=== PATIENT | female | born 1945 | race Caucasian/White ===

== ENCOUNTER → 2017-08-12 | Outpatient (CLI) | payer MEDICARE ==
[~2017-08-12] MED LIST: ALPR-445 PO; AMI10 PO; AMI25 PO; AMIT-106 PO; ASPI81TA94 PO; BIMOD OP; BLOO1STR16 MC; CYC10 PO; DULO30CA35 PO; DULO60CA56 PO; ERGO500037 PO; FLU45SYR17 IM; FLU45SYR25 IM ONLY; FLU60SYR30 IM ONLY; GABA-547 PO; GABA-549 PO; IBUP-1618 PO; LANC-1295 MC; LATA2.5D5; LEVO50TA86 PO; METF-410 PO; METF-420 PO; METO-1 PO; METO-253 PO; OMEP-218 PO; PNEU0.5D3 IM; POTA8TAB41 PO; PREG50CA48 PO; VALS160T2 PO; VALS160T20 PO; VALS1TAB72 PO; [UNRECOGNIZED DRUG - CODE] ASDIRECTED
[2017-08-12 09:32] LABS: LDL CHOLESTEROL 72 mg/dl
== END ==
LOC: LAB 08:36
PROVIDERS: ATTEND Internal Medicine
DX: E55.9 Vitamin D deficiency, unspecified (principal); E11.40 Type 2 diabetes mellitus with diabetic neuropathy, unspecified; I10 Essential (primary) hypertension; E03.9 Hypothyroidism, unspecified
CPT/HCPCS: 36415; 82040; 82247; 82306; 82310; 82374; 82435; 82465; 82565; 82947; 83036; 83718; 84075; 84132; 84155; 84295; 84443; 84450; 84460; 84478; 84520

== ENCOUNTER → 2017-12-23 | Outpatient (CLI) | payer MEDICARE ==
[~2017-12-23] MED LIST changes: +HYDR12.561 PO; -METF-410 PO; +METF-411 PO; -METF-420 PO; +METF-421 PO; -VALS160T2 PO; +VALS160T7 PO
[2017-12-23 08:53] LABS: LDL CHOLESTEROL 78 mg/dl
== END ==
LOC: LAB 08:14
PROVIDERS: ATTEND Internal Medicine
DX: E11.49 Type 2 diabetes mellitus with other diabetic neurological complication (principal); I10 Essential (primary) hypertension; E78.1 Pure hyperglyceridemia; E03.9 Hypothyroidism, unspecified; E55.9 Vitamin D deficiency, unspecified
CPT/HCPCS: 36415; 82040; 82247; 82306; 82310; 82374; 82435; 82465; 82565; 82947; 83036; 83718; 84075; 84132; 84155; 84295; 84443; 84450; 84460; 84478; 84520

== ENCOUNTER → 2018-07-20 | Outpatient (CLI) | payer MEDICARE ==
[~2018-07-20] MED LIST changes: +FLU180SY11 IM; +LANC-1149 MC; +LOSA100T75 PO; +LOSA50TA80 PO; -METF-411 PO; -METF-421 PO; +METF-450 PO; +METF-452 PO; -VALS160T7 PO; +VALS160T8 PO
[2018-07-20 11:11] LABS: LDL CHOLESTEROL 76 mg/dl
== END ==
LOC: LAB 10:23
PROVIDERS: ATTEND Internal Medicine
DX: E11.49 Type 2 diabetes mellitus with other diabetic neurological complication (principal); E55.9 Vitamin D deficiency, unspecified; E03.9 Hypothyroidism, unspecified; I10 Essential (primary) hypertension
CPT/HCPCS: 36415; 82040; 82247; 82306; 82310; 82374; 82435; 82465; 82565; 82947; 83036; 83718; 84075; 84132; 84155; 84295; 84443; 84450; 84460; 84478; 84520

== ENCOUNTER → 2019-01-09 | Outpatient (CLI) | payer MEDICARE ==
[~2019-01-09] MED LIST changes: +DULA1.5P SQ
--- NOTE | 2019-01-09 11:25 | RADIOLOGY IMAGING REPORT ---
[place] [facility] [place] NAME: Francine Monk : 1945 MR: [id number] V: [id number] EXAM DATE: ORDERING PHYSICIAN: ALICE URIOSTEGUI TECHNOLOGIST: Location: [facility] - [place] Patient: Francine Monk : 1945 Visit/Account:[id number] Date of Sevice: 01/09/2019 DEXA Scan Clinical history: Postmenopausal. Comparison: DEXA scan from 03/09/2017. LUMBAR SPINE: The bone mineral density (BMD) measured from L1-L4 correlates with a Z-score 0.7 and a T-score of -0. 7 which is Normal as defined by the World Health Organization. The corresponding risk of fracture in the lumbar spine is 1-2 times increased compared with a young adult reference population. This valu e has increased by 1.7 % since the prior study. More than 5% change is considered significant. FOREARM: The bone mineral density (BMD) measured in the ULTRADISTAL Left forearm, where trabecular bone predom inates, correlates with a Z-score of 1.1 and a T-score of -0.9 which is normal as defined by the Worl Health Organization. The corresponding risk of fracture in the distal forearm is 1-2 times increas ed compared with a young adult reference population. This value has increase by 7.3 % since the prio r study. More than 5% change is considered significant. The bone mineral density (BMD) in the MIDSHAFT of the forearm, where cortical bone predominates, jared elates with a Z-score of 0.4 and a T-score of -1.5 which is osteopenia as defined by the World Health Organization. The corresponding risk of fracture in the midshaft of the forearm is 3 times increased compared with a young adult reference population. This value has increased by 7.3 % since the prior study. More than 5% change is considered significant. IMPRESSION: 1. Lumbar spine: Normal. There has been 1.7% increase in the bone mineral density since the previou s exam. 2. Left Forearm: Osteopenia. There has been 7.3% increase in the bone mineral density since the pr evious exam The next DEXA scan of this patient should include the following sites: L1-L4 and the left forearm. FRAX? WHO Fracture Risk Assessment Tool link: <http://www.shef.ac.uk/FRAX/tool.jsp?locationValue=9> PLEASE NOTE: 1) The World Health Organization defines low BMD as follows: T-score Normal > -1 Osteopenia < -1 and > -2.5 Osteoporosis < -2.5 without fractures Established osteoporosis < -2.5 with fractures 2) In general, you may wish to consider: Diagnosis Treatment Follow-up DEXA Normal BMD Prevention 2-3 years Osteopenia Prevention/therapy 1-2 years Osteoporosis Therapy Yearly 3) Fracture risk estimated from the T-score is more accurate for vertebral fractures (often spontane ous) than for hip fractures. Report Dictated By: Jaclyn Beltre MD at 01/09/2019 10:48 AM Report E-Signed By: Jaclyn Beltre MD at 01/09/2019 11:18 AM RAFAELN:AMICIVHerbert
== END ==
LOC: RAD 01:08
PROVIDERS: ATTEND Family Medicine
DX: M85.832 Other specified disorders of bone density and structure, left forearm (principal)
CPT/HCPCS: 77080

== ENCOUNTER → 2019-01-11 | Outpatient (CLI) | payer MEDICARE | LOC: LAB 14:29 | PROVIDERS: ATTEND Surgery | DX: Z01.818 Encounter for other preprocedural examination (principal) | CPT/HCPCS: 36415; 82310; 82374; 82435; 82565; 82947; 83036; 84132; 84295; 84520 ==

== ENCOUNTER → 2019-02-13 | Outpatient (CLI) | payer MEDICARE ==
--- NOTE | 2019-02-13 15:32 | RADIOLOGY IMAGING REPORT ---
FACILITY: [facility] PATIENT NAME: GUERDA STOUT : [id number] MR: [id number] V: [id number] EXAM DATE: ORDERING PHYSICIAN: ALICE URIOSTEGUI TECHNOLOGIST: Agnes Bro PROCEDURE: BILATERAL DIGITAL SCREENING MAMMOGRAM WITH CAD ASSISTED INTERPRETATION & 3D TOMOSYNTHESIS REASON FOR STUDY: Screening. COMPARISON: 03/09/17, 02/27/15 & 06/07/07. VIEWS OBTAINED: 2D & 3D full field CC & MLO projections. BREAST DENSITY: The breasts have scattered fibroglandular parenchymal densities. MAMMOGRAM FINDINGS: Stable benign appearing mass with calcifications in the anterior lateral aspect of the Left breast. Sable additional mass or focal asymmetry in the upper outer aspect of the Left breast at middle depth. There is also a stable axillary tail lymph node on the Left. No new mammographic finding of concern on the other side. IMPRESSION: BIRADS 2: Benign finding. DIAGNOSTIC CATEGORY 2--BENIGN FINDING. RECOMMENDATIONS: ROUTINE MAMMOGRAM AND CLINICAL EVALUATION IN 1YR. Dictated by: Alcides Jack on 02/13/2019 at 11:17 Transcribed by: OMARI on 02/13/2019 at 13:48 Approved by: Alcides Jack on 02/13/2019 at 15:28 [facility]
== END ==
LOC: MAMO 00:29
PROVIDERS: ATTEND Family Medicine
DX: Z12.31 Encounter for screening mammogram for malignant neoplasm of breast (principal); R92.1 Mammographic calcification found on diagnostic imaging of breast
CPT/HCPCS: 77063; 77067

== ENCOUNTER 2019-02-21 00:42 | Day surgery (SDC) | payer MEDICARE ==
[~2019-02-21] VITALS: Ht 162.6 cm; Wt 72.6 kg
[2019-02-21] MEDS ORDERED: LIDOCAINE MPF 1% 5 ML VIAL ONE (07:04)
[2019-02-21] MEDS ORDERED: PROPOFOL EMUL(*) 10MG/ML 20 ML 60 ML ONE (07:04)
[2019-02-21] MEDS ORDERED: LIDOCAINE/SOD BICARB 8.4% SYR ID ONE (08:30)
[2019-02-21] MEDS ORDERED: NORMOSOL R SOLN(*) 1000 ML BAG 1,000 ML IV PRN (08:30)
[2019-02-21] MEDS ORDERED: MIDAZOLAM 2 MG/2 ML VIAL IVP PRN (08:30)
[2019-02-21 08:50] VITALS: BP 184/70
[2019-02-21 10:38] VITALS: BP 104/64
--- NOTE | 2019-02-21 10:55 | Short(Outpt) Discharge Summary ---
Discharge Summary Reason for Hosp/Final Diag: (1) Colon cancer screening Status: Chronic Hospital Course & Plan: Colonoscopy completed without problems, no polyps. Departure Discharge to: Home, Self Care Discharge Instructions Home Meds Active Scripts Amitriptyline Hcl (AMITRIPTYLINE HCL) 25 Mg Tablet, 0.5 TAB PO QDAY, #45 TAB 0 Refills Prov:PRINCE MERCADO MD 10/12/18 Metoprolol Tartrate (METOPROLOL TARTRATE) 50 Mg Tab, 2 TAB PO DAILY, #180 TAB 0 Refills Take one tablet by mouth in the morning and 1 tablet at night. Prov:PRINCE MERCADO MD 07/31/18 Gabapentin (GABAPENTIN) 100 Mg Capsule, 5 TAB PO QDAY, #150 CAPSULE 5 Refills take 3 in morning and 2 in evening for nerve pain Prov:PRINCE MERCADO MD 07/25/18 Losartan Potassium (LOSARTAN POTASSIUM) 50 Mg Tablet, 1 TAB PO BID, #180 TAB 3 Refills Prov:PRINCE MERCADO MD 06/28/18 Lancets (ONE TOUCH LANCETS) 1 Each Each, EACH MC every 90 days, #200 4 Refills Use to test blood sugar twice daily Prov:PRINCE MERCADO MD 06/20/18 Blood Sugar Diagnostic (FREESTYLE LITE TEST STRIPS) 1 Each Strip, 1 EACH MC BID, #100 STRIP 11 Refills use to test glucose twice daily. Prov:PRINCE MERCADO MD 06/16/18 Levothyroxine Sodium (LEVOTHYROXINE SODIUM) 50 Mcg Tablet, 1 TAB PO QDAY, #90 TAB 3 Refills Prov:PRINCE MERCADO MD 12/20/17 Duloxetine Hcl (CYMBALTA) 60 Mg Capsule.dr, 1 CAP PO QDAY, #90 CAP 3 Refills Prov:PRINCE MERCADO MD 12/05/17 Hydrochlorothiazide (HYDROCHLOROTHIAZIDE) 12.5 Mg Tablet, 1 TAB PO QDAY, #90 TAB 3 Refills Prov:PRINCE MERCADO MD 10/12/17 Potassium Chloride (KLOR-CON 8) 8 Meq Tablet.er, 1 TAB PO BID, #180 TAB 3 Refills Prov:PRINCE MERCAOD MD 08/10/17 Ergocalciferol (Vitamin D2) (VITAMIN D2) 50,000 Unit Capsule, 1 CAP PO QWEEK, #48 CAPSULE 0 Refills Prov:PRINCE MERCADO MD 04/01/17 Blood-Glucose Meter (FREESTYLE FREEDOM LITE) 1 Each Kit, 1 EACH ASDIRECTED BID, #1 0 Refills Use meter to test glucose twice daily. Prov:LEROY SKINNER PHARMD 05/26/16 Reported Medications Metformin Hcl (METFORMIN HCL) 1,000 Mg Tablet, 1 TAB PO BID, #90 TAB 1 Refill 05/01/18 Discontinued Reported Medications Dulaglutide (Trulicity) 1.5 Mg/0.5 Ml Pen.injctr, 1.5 MG SQ QWEEK 07/25/18 Diet: Regular Activity: As Tolerated Special Instructions: Your colonoscopy was completed without problems and your prep was excellent (Good Job!!). I didn't find any polyps or cancers. I recommend that your next colonoscopy be in 10 years. HARSHA EDGAR MD Feb 21, 2019 10:55
--- NOTE | 2019-02-21 11:08 | NUR ---
Patient supplemental oxygen decreased to 3.5 L/min via oxymask. tolerating well. oxygen saturation maintaining at 98% with no compensation from other systems. will continue to monitor.
[2019-02-21 11:10] VITALS: BP 130/77
--- NOTE | 2019-02-21 11:13 | NUR ---
patient supplemental oxygen removed. tolerating well with 97% O2 saturation, 61 pulse and 16 respirations. will continue to monitor and assess.
[2019-02-21 11:35] VITALS: BP 126/72
[2019-02-21 11:39] VITALS: BP 125/75
== END 2019-02-21 12:16 | disposition home or self-care (01) ==
LOC: OR 00:42
PROVIDERS: ATTEND Surgery
DX: Z12.11 Encounter for screening for malignant neoplasm of colon (principal); E11.9 Type 2 diabetes mellitus without complications; K57.30 Diverticulosis of large intestine without perforation or abscess without bleeding
CPT/HCPCS: 00812; 36416; 82948; G0121; J2001; J2704